=== PATIENT | male | born 1960 | race Caucasian/White ===

== ENCOUNTER 2016-11-25 16:07 | Emergency (ER) | payer OTHER ==
[2016-11-25 14:36] LABS: BASOPHILS 0.1 %; BASOPHILS ABSOLUTE 0.01 10/3/uL (0.0-0.16); EOSINOPHILS 5.1 %; EOSINOPHILS ABSOLUTE 0.37 10/3/uL (0.0-0.53); HEMATOCRIT 37.2 % (40.0-51.0); HEMOGLOBIN 12.1 g/dL (13.6-17.8); IMMATURE GRANULOCYTES 0.3 %; IMMATURE GRANULOCYTES ABSOLUTE 0.02 10/3/uL (0.0-0.11); LYMPHOCYTES 25.2 %; LYMPHOCYTES ABSOLUTE 1.82 10/3/uL (0.67-4.30); MEAN CORPUS HGB CONC 32.5 g/dL (32.0-36.0); MEAN CORPUSCULAR HEMOGLOB 27.4 pg (26.0-34.0); MEAN CORPUSCULAR VOLUME 84.2 fL (80-100); MEAN PLATELET VOLUME 9.6 fL (9.2-13.0); MONOCYTES 12.8 %; MONOCYTES ABSOLUTE 0.92 10/3/uL (0.21-1.20); NEUTROPHILS 56.5 %; NEUTROPHILS ABSOLUTE 4.07 10/3/uL (2.02-8.40); PLATELET COUNT 235 10/3/uL (150-400); RBC DISTRIBUTION WIDTH 15.8 % (12.0-16.0); RED CELL COUNT 4.42 10/6/uL (4.7-6.1); WHITE BLOOD CELLS 7.2 10/3/uL (4.5-10.5)
[2016-11-25 14:38] LABS: MANUAL DIFF NO %
[2016-11-25 14:51] LABS: BUN (BLOOD UREA NITROGEN) 18 MG/DL (6-23); CALCIUM, SERUM 8.4 MG/DL (8.5-10.4); CHLORIDE, SERUM 102 MMOL/L (96-112); CO2 (CARBON DIOXIDE) 28 MMOL/L (24-34); GFR AFRICAN AMERICAN 66 ML/MIN (>=60); GFR NON AFRICAN AMERICAN 57 ML/MIN (>=60); POTASSIUM, SERUM 3.9 MMOL/L (3.5-5.3); SGOT(AST) 10 U/L (5-40); SGPT(ALT) 19 U/L (5-65); SODIUM, SERUM 137 MMOL/L (135-148)
[2016-11-25 14:53] LABS: A/G RATIO 0.9 (0.7-1.9); ALBUMIN 3.4 G/DL (3.5-5.0); ALKALINE PHOSPHATASE 84 U/L (45-117); GLOBULIN 3.7 G/DL (2.5-4.1); GLUCOSE, SERUM 119 MG/DL (60-99); TOTAL BILIRUBIN 0.3 MG/DL (0-1.2); TOTAL PROTEIN 7.1 G/DL (6.0-8.5)
[~2016-11-25 16:07] MED LIST: ACCU20 PO; ACCUPRIL40 MG PO; ALERTAB25 MG PO; ALEVE220 MG PO; ASA5GR PO; ASAB PO; BEN25 PO; CRANBERRY TABLET PO; CRANBERRY1 TAB PO; CRANBERRY300 MG PO; CRESTOR40 MG PO; FLOMAX4 PO; FLUCON2 PO; HYDROCHLOROT25 MG PO; IBU800 PO; ISOSORBIDE PO; K-TABS10 MEQ PO; KLOR-CON 1010 MEQ PO; L20 PO; LEVEMIR SC; LORT7 PO; LORTAB 5 PO; MACROBID PO; MAGNESIUM PO; MAGOX4 PO; METHOC750B PO; NEUR300 PO; NEXIUM40 PO; NOVOLOG SC; PLAVIX PO; SINEQUAN 50 MG50 MG PO; TOPXL100 PO; TRESIBA PO; ULTRAM50 PO; URO-MAG140 MG PO; VANC125UDL PO; VITC500 PO; VITD PO; ZOCOR PO; ZOCOR20 PO; ZYRTEC ALLGY10 MG PO
== END 2016-11-25 16:30 | disposition home or self-care (01) ==
LOC: ER 16:07
PROVIDERS: Nurse Practitioner
DX: Z43.5 Encounter for attention to cystostomy (principal); I10 Essential (primary) hypertension; E11.9 Type 2 diabetes mellitus without complications; Z91.09 Other allergy status, other than to drugs and biological substances; Z79.4 Long term (current) use of insulin; Z79.82 Long term (current) use of aspirin; Z79.899 Other long term (current) drug therapy
CPT/HCPCS: 80053; 81001; 83690; 85025; 99283